=== PATIENT | female | born 1950 | race Caucasian/White ===

== ENCOUNTER 2017-08-05 08:09 | Outpatient (RCR) | payer MEDICARE, OTHER, SELFPAY ==
--- NOTE | 2017-08-05 15:27 | HP.PTEVAL_ITS ---
Patient's Visit Information DEMARCUS WOODRUFF is a 66 year old F referred to Physical Therapy by JOSE ALEJANDRO BARROS,JOSE ALEJANDRO Sparks with a diagnosis of LUMBAR SPINAL STENOSIS WITH NEUROGENIC CLAUDICATION. Date of Evaluation: 08/05/17 Physical Therapist: Darya Espinal - Visit Plan Frequency: 2-3x /Week Duration: 4-6 Weeks Plan: PRECAUTIONS - POSSIBLE SPINAL CORD INVOLVEMENT. SURGERY HAS BEEN RECOMMENDED. LEFT FOOT DROP AND LE SX'S ARE CURRENTLY WORSENING. AQUATIC THERPY FOR POSTURE CORRECTION/STRENGTHENING, INSTRUCTION IN APPROPRIATE BODY MECHANICS AND ACTIVITY MODIFICATIONS. DLS WITH A NEUTRAL SPINE TOLERATED. PETRA LE ROM, STRETCHING AND STRENGTHENING. HEP INSTRUCTION. MONITOR LE SUBJECTIVE SYMPROMS AND STRENGTH. PATIENT IS TO GO TO THE EMERGENCY DEPARTMENT IF SUDDEN LOSS OF LE FUNCTION. - Subjective Subjective: Diagnosis: LUMBAR SPINAL STENOSIS WITH NEUROGENIC CLAUDICATION. 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 Disability: NO. Present symptoms: LOW BACK, LEFT THIGH, LEFT LEG, FOOT. LEFT LE NUMBNESS AND TINGLING. NO RIGHT LE SX'S. Present since: FEB 2017 - THIS EPISODE. Pain Scale: WORST 5/10, LEAST 2/10. Currently: 08/11. WORSING. Commenced as a result of: PATIENT REPORTS SHE TURNED AROUND IN BED AND SHE FELT SOMETHING FUNNY IN HER LOW BACK AND HAD A SHARP PAIN IN HER LOW BACK WITH NUMBNESS DOWN THE LLE RIGHT AWAY. Symptoms at onset: LOW BACK AND LLE. Worse: EXERCISING, WALKING, RUNNING, BENDING, STEPS, LIFTING, OVER HEAD LIFTING, PROLONGED SITTING , TRAVELING, IN/OUT OF THE CAR. Better: CHANGE OF POSITION, ROLLING OVER IN BED, ALEVE, TYLONOL, GABAPENTIN. Disturbed sleep: YES. Previous history/ Previous treatment: AUGUST 2015 AT [facility] - LUMBAR FUSION. PT FOR LOW BACK FOLLOWED BY MELVA EX A HEALTH AND WELLNESS MEMBER HERE AT [facility] UNTIL LAST OCT WHEN SOMETHING WENT WRONG STATED ABOVE. SHE REPORTS SHE WAS DOING FINE UNTIL FEB 2017. Coughing/sneezing/straining: NEGATIVE. Gait: PATIENT REPORTS SHE NOW FEELS UNBALANCED AT TIMES, HER LEFT LEG DOESN'T WANT TO LISTEN TO HER AND SHE IS GETTING A DROP FOOT THAT SLAPS WHEN SHE WALKS. SHE THINKS THE DROP FOOT IS WHY SHE IS FALLING. THE LLE IS DEFINATELY STILL GETTING WEAKER. NO AD'S. Difficulty initiating urinatin: NO. Accidents: NO. Unexplained weight loss: NO. Imaging: L1-L2 IS PUSHING ON THE SPINAL CORD AND THE LLE NERVE ROOT. THIS UNDERSTANDING OF THE PATIENT IS AFTER MULTIPLE X-RAYS, CAT SCAN AND MRI ALL SINCE FEB 2017. PMH: OVARIAN CANCER 2011, CARCINOID TUMOR OF LEFT OVARY - TREATED WITH SURGERY, RIGHT SCIATICA, LUMBAR STENOSIS, OA RIGHT KNEE, VERTIGO, HTN, SCOLIOSIS, OA LEFT KNEE , VITAMIN D DEFICIENCY, HYPERGLYCEMIA, PRE-DIABETIC. OTHER: PATIENT REPORTS HER BACK SURGEON IS TALKING BACK SURGERY AGAIN. PATIENT REPORTS SHE DOES NOT WANT ANOTHER BACK SURGERY SO SHE REQUESTED TO SEE ME AGAIN SO SHE COULD FIGURE OUT IN HER BRAIN IF SHE HAS ANY CHOICES AND THE DOCTOR AGREED TO WRITE THE ORDER. SHE WAS REALLY HAPPY WITH HOW SHE DID AFTER SURGERY UNTIL LAST FEBRUARY. PATIENT REPORTS THE DOCTOR TOLD HER PT CAN'T HURT BUT IT ISN'T GOING TO FIX IT. LUMBAR CRIS SCHEDULED AT TOMORROW. HAD AN INJECTION IN JUN 2017 ALSO WHICH HELPED THE BACK PAIN AND THE LLE PAIN A LITTLE BIT FOR A FEW WEEKS BUT IT DIDN' T HELP THE NUMBNESS. EXERCISED IN THE GYM BEFORE APPOINTMENT TODAY AND HAS BEEN TRYING TO COME TO THE GYM MUCH POSSIBLE - ABOUT 2 TIMES A WEEK CURRENTLY EVEN THOUGH IT HURTS SOME. - Objective Sitting Posture: POOR. Standing Posture: POOR. SCOLIOSIS, INCREASED TRUNK FLEXION AND PETRA KNEE FLEXION. Lordosis: REDUCED. Active Correction of posture : WORSE. IN STANDING, POSTURE CORRECTION THROWS PATIENT OFF BALANCE. Other Observations: INDEP GAIT INTO PT WITHOUT ASSISTIVE DEVICE BUT SHE IS LEANING TO THE RIGHT AND HAS FOOT SLAP ON THE LEFT. ALSO WALKING WITH INCREASED TRUNK AND KNEE FLEXION WITH DECREASED CADANCE AND DECREASED PETRA STRIDE LENGTH. LIMP ON LEFT LE. Motor deficit: RIGHT LE: HIP 4-/5, KNEE EXT 4/5, KNEE FLEX 4/5, ANKLE DORSIFLEX 4/5, PLANTAR FLEX 4/5. LLE: HIP 3/5, KNEE EXT 4-/5, KNEE FLEX 3+/5, ANKLE DORSIFLEX 2+/5, PLANTARFLEX 3-/5. Sensory deficit: DECREASED LIGHT TOUCH LEFT ANTERIOR THIGH COMPARED TO RIGHT. ROM deficit: TIGHT PETRA HS' S AND GASTROC SOLEUS COMPLEX'S. LEFT FOOT DROP. Dural Signs: POSITIVE LLE. Lumbar mvmt loss: flex - MIN. ext - EBONI. R SG - EBONI. L SG - EBONI. Core strength: POOR. Palpation: NO ACUTE TENDERNESS WITH PALPATION OF THE SPINE BUT PERTA SI JOINT REGIONS ARE TENDER. - Goals Goal 1:: DECREASE C/O BACK AND LE SX'S. Goal Time Frame: 4-6 Weeks Goal 2:: IMPROVE PERSONAL CARE, LIFTING, WALKING, SITTING, STANDING, SOCIAL LIFE , TRAVEL AND EMPLOYMENT/HOMEMAKING FUNCTION Goal Time Frame: 4-6 Weeks Goal 3:: INSTRUCT IN PROPHYLAXIS Goal Time Frame: 4-6 Weeks - Rehabilitation Potential Rehabilitation Potential: Fair - Anticipated Interventions Patient/Client Instruction: Educate patient on: Condition, Plan of Care, Risk Factors, Benefits of Fitness Program For the Purpose of:: To improve self management Therapeutic Exercise to Include: Strength training, Endurance training, Balance training, Coordination, Body mechanics, Postural training, Flexibilty training, Gait and locomotor training, In an aquatic setting, Dynamic Lumbar Stabilization For the Purpose of:: To decrease pain, To decrease swelling/inflammation, To increase ROM, To improve muscle performance and motor function, To improve ability to perform ADL's, To increase tolerance to activity/condition/position, To improve ability of physical actions for home/community/work/leisure, To improve gait and locomotor functions Thank you for the opportunity to evaluate your patient. For Medicare and Medicare HMO plans, please review the plan of care and approve it. It will need to be FAXED BACK to us at [phone] for Medicare purposes. Please let me know if there are questions or concerns regarding this plan of care. Physician Signature: Date:
--- NOTE | 2017-12-02 13:26 | HP.PT.NRP ---
HP - Discharge Summary (1) - Patient Information DEMARCUS WOODRUFF was seen in my office for initial evaluation on 08/05/17. The following Plan of Care was established for this patient: Initial Frequency: 2-3x /Week Initial Duration: 4-6 Weeks - Anticipated Interventions Patient/Client Instruction: Educate patient on: Condition, Plan of Care, Risk Factors, Benefits of Fitness Program For the Purpose of:: To improve self management Therapeutic Exercise to Include: Strength training, Endurance training, Balance training, Coordination, Body mechanics, Postural training, Flexibilty training, Gait and locomotor training, In an aquatic setting, Dynamic Lumbar Stabilization For the Purpose of:: To decrease pain, To decrease swelling/inflammation, To increase ROM, To improve muscle performance and motor function, To improve ability to perform ADL's, To increase tolerance to activity/condition/position, To improve ability of physical actions for home/community/work/leisure, To improve gait and locomotor functions This patient was last seen in our office 08/05/17. Pertinent comments regarding their Physical therapy will appear below: This patient has not returned to Physical Therapy and is appropriate to return to MD for further follow-up as needed. At this point I will be discontinuing this patient from physical therapy. I would be happy to see this patient again in the future if found appropriate by the physician. Thank you! Darya Espinal
== END 2017-08-05 19:00 | disposition home or self-care (01) ==
LOC: PT 08:09
PROVIDERS: Family Provider Nurse Practitioner; PCP Nurse Practitioner
DX: M48.062 Spinal stenosis, lumbar region with neurogenic claudication (principal)
CPT/HCPCS: 97162; 97530

== ENCOUNTER 2019-04-13 10:00 | Outpatient (RCR) | payer MEDICARE, OTHER, SELFPAY ==
--- NOTE | 2019-03-14 17:29 | HP.PTEVAL_ITS ---
Patient's Visit Information DEMARCUS WOODRUFF is a 68 year old F referred to Physical Therapy by Felix Baxter with a diagnosis of L THR S/P 02-15-19. Date of Evaluation: 03/14/19 Physical Therapist: MAULIK Lehman - Visit Plan Frequency: 2x /Week Duration: 2 Months Plan: 2X/ week per pt request for L knee AROM, PROM, gait, strength, functional activities, stair with HEP and ice as needed - Subjective Findings: Pt had a L TKR on Feb 15, 2019. She had home PT. No longer uses any AD. She is still talking pain meds and she is trying wean that now. She has a one story set up home. SHe has had 2 back surgeries as well in the past. She did 15 steps with a handrail (step 2 pattern) for the first time today. Her knee AROM was 115 degrees L knee flexion on . She started a compression sock.... HEP: ankle pumps, QS GS, Supine hip abd, Heels slides, Heel slides with OP, lunges to stretch on the step, standing hip abd, standing knee flexion, marching, squats at the counter. - Pain L knee pain Pain Intensity (Out of 10): 3 Pain Intensity Range: 7 - Objective Gait: walks with decrease stance time on the L LE and a little trendelenburg L hip. L knee AROM -1 degree from full extension and 114 degrees L knee fleixon. R knee flexion is 128 degrees. Stairs: able to go up and down recip with B hand rails with a little hop descending the stairs and some weakness on the L LE with descending the stairs. LE MMT: R hip flex 4-/5 and L 4/5, R hip abd 4/5 and L hip abd 3-/5 ( resorted to clam shells dues to weakness with s/L hip abd. Pt was able to perform heel and toe raises with holding onto the chair. - Goals Goal 1:: I HEP Goal Time Frame: 6-8 Weeks Goal 2:: Increase L knee AROM 0- 125 degrees knee flexion Goal Time Frame: 6-8 Weeks Goal 3:: Up and down stairs recip with one hand rail Goal Time Frame: 6-8 Weeks Goal 4:: Be able to walk with normal gait pattern Goal Time Frame: 6-8 Weeks - Rehabilitation Potential Rehabilitation Potential: Good - Anticipated Interventions Thank you for the opportunity to evaluate your patient. For Medicare and Medicare HMO plans, please review the plan of care and approve it. It will need to be FAXED BACK to us at [phone] for Medicare purposes. For Medicare only, by signing this I certify the plan of care. Please let me know if there are questions or concerns regarding this plan of care. Physician Signature : Date:
--- NOTE | 2019-04-13 10:36 | HP.PTDCSUM ---
HP - PT D/C Summary It has been my pleasure to treat DEMARCUS WOODRUFF under orders from Felix Baxter, for the diagnosis of L TkR S/P 02-15-19 for a total of 9 visit(s). Discharge Date: 04/13/19 Please see the following information for a summary of their discharge status. - Subjective Subjective: Pt RTD in May. She feels that she is good with PT and will continue to bike and do exercises at home. She can stand for 2 hours at a time. Pt reports that she is still struggling with swelling when she does too much and she still ices 1-2 X/ day depending on how bad it gets. - Pain L knee pain Pain Intensity (Out of 10): 3 - Overall Improvement % Improvement: 100 - Objective Objective/Function: Pt was doing stoolies and went to stand up really fast and felt a stretch in L QUAD... she reported she knows better than to move that fast. Stairs: up and down stairs recip with 2 handrails.... with a little more weight on hands when descending with the R leg first due to increase pain in R knee. Gait: Pt still walks with decrease stance time on the L LE. -1 degree from full extension to 124 degrees with increase swelling today. L knee flexion. L hip abd 3+/5, knee flexion 4/5, knee ext 4-/5 - Goals Goal 1:: I HEP Goal Progress: Goal Met Goal 2:: Increase L knee AROM 0- 125 degrees knee flexion Goal Progress: Goal Met Goal 3:: Up and down stairs recip with one hand rail Goal Progress: Progressing Goal 4:: Be able to walk with normal gait pattern Goal Progress: Progressing - Plan Plan: DC PT to HEP - D/C Information Discharge Comments: DC PT If there are questions or concerns regarding this patient's physical therapy, please feel free to call me at [phone]. Thank you for the referral of this patient. Sincerely, Meche Yee, MPT
== END 2019-04-13 19:00 | disposition home or self-care (01) ==
LOC: PT 10:00
PROVIDERS: Family Provider Internal Medicine; PCP Internal Medicine; Referring Provider Orthopaedic Surgery; Visit Provider Orthopaedic Surgery
DX: Z96.652 Presence of left artificial knee joint (principal)
CPT/HCPCS: 97110; 97161